=== PATIENT | female | born 1965 | race Caucasian/White ===

== ENCOUNTER 2018-12-24 20:22 | Emergency (ER) | payer SELFPAY ==
--- NOTE | 2018-12-24 21:01 | RAD ---
XR Chest Pa Lat STANDARD History: Fall. Left-sided pain. Comparison: None. Findings: Lungs are clear. No pneumothorax or effusion. Cardiac silhouette and mediastinal contours a re within normal limits. No acute osseous abnormality. Impression: No acute intrathoracic abnormality.
--- NOTE | 2018-12-24 21:04 | RAD ---
XR Pelvis AP STANDARD History: Fall. Injury. Comparison: None. Findings: Mild degenerative changes of the SI joints. No acute fracture or malalignment. Obturator ri ngs are intact. Enlarged bilateral L5 transverse processes have are fused with the sacrum. Impression: No acute osseous abnormality.
[2018-12-24] MEDS ORDERED: HYDROcodone/Acetaminophen 5/325 mg Tablet ONE (21:23)
[2018-12-24] MEDS ORDERED: Ketorolac Tromethamine 60 MG/2 ML VIAL ONE (21:23)
== END 2018-12-24 21:30 | disposition home or self-care (01) ==
LOC: MADERS 20:22
DX: S20.212A Contusion of left front wall of thorax, initial encounter (principal); S70.02XA Contusion of left hip, initial encounter; F17.210 Nicotine dependence, cigarettes, uncomplicated; V19.9XXA Pedal cyclist (driver) (passenger) injured in unspecified traffic accident, initial encounter
CPT/HCPCS: 71046; 72170; 96372; J1885

== ENCOUNTER 2019-06-23 19:38 | Emergency (ER) | payer SELFPAY ==
[2019-06-23] MEDS ORDERED: Sulfameth/Trimethoprim DS 800-160mg TAB ONE (20:31)
[2019-06-23] MEDS ORDERED: cefTRIAXone\\ROCEPHIN 1 GM VIAL ONE (20:31)
[2019-06-23] MEDS ORDERED: Adacel (T-DAP) 0.5 ML SYRINGE ONE (20:31)
[2019-06-23] MEDS ORDERED: Sterile Water 10 ML ONE (20:32)
== END 2019-06-23 21:10 | disposition home or self-care (01) ==
LOC: MADERS 19:38
DX: T63.301A Toxic effect of unspecified spider venom, accidental (unintentional), initial encounter (principal); F41.9 Anxiety disorder, unspecified; F31.9 Bipolar disorder, unspecified; F17.210 Nicotine dependence, cigarettes, uncomplicated; F43.10 Post-traumatic stress disorder, unspecified
CPT/HCPCS: 90471; 90715; 96372; J0696

== ENCOUNTER 2019-12-30 13:17 | Emergency (ER) | payer SELFPAY ==
[2019-12-30] MEDS ORDERED: Naproxen 500 MG TAB ONE (14:45)
== END 2019-12-30 14:55 | disposition home or self-care (01) ==
LOC: MADERS 13:17
DX: S83.242A Other tear of medial meniscus, current injury, left knee, initial encounter (principal); F41.9 Anxiety disorder, unspecified; F31.9 Bipolar disorder, unspecified; F43.10 Post-traumatic stress disorder, unspecified; Z87.891 Personal history of nicotine dependence; V18.2XXA Unspecified pedal cyclist injured in noncollision transport accident in nontraffic accident, initial encounter; Y92.89 Other specified places as the place of occurrence of the external cause
CPT/HCPCS: 99283

== ENCOUNTER 2020-09-11 17:11 | Emergency (ER) | payer SELFPAY | END 2020-09-11 19:08 | disposition home or self-care (01) | LOC: MADERS 17:11 | DX: S46.011A Strain of muscle(s) and tendon(s) of the rotator cuff of right shoulder, initial encounter (principal); R53.1 Weakness; F17.210 Nicotine dependence, cigarettes, uncomplicated; W10.9XXA Fall (on) (from) unspecified stairs and steps, initial encounter ==

== ENCOUNTER 2021-08-14 10:58 | Emergency (ER) | payer SELFPAY ==
[2021-08-14 11:36] LABS: Bilirubin Negative (Negative); Blood, Urine Large (Negative); Glucose, Urine (Dipstick) Negative (Negative); Ketone, Urine Negative (Negative); Leukocyte Small (Negative); Nitrite Negative (Negative); Protein, Urine (Dipstick) Negative (Neg-Trace); Urobilinogen 0.2 mg/dL (Less than 2)
[2021-08-14 11:37] LABS: Pregnancy Test - Urine (BHCG) Negative (Negative); Pregu Control Background? CLEAR/WHITE (CLR/WHITE); Pregu Control Bar Appear? YES (CONTROL BAR); Specific Gravity 1.005 (1.002-1.036)
[2021-08-14 11:41] LABS: Clarity Hazy (Clear); Specific Gravity, Urine 1.005 (1.002-1.036)
[2021-08-14 11:44] LABS: Bacteria/HPF Rare-Few HPF (None Seen); Squamous Epithelial 0-3 HPF (0-3)
== END 2021-08-14 12:30 ==
LOC: MADERS 10:58
DX: N39.0 Urinary tract infection, site not specified (principal); N81.10 Cystocele, unspecified; Z87.891 Personal history of nicotine dependence
CPT/HCPCS: 81003; 81015; 81025; 87086; 99283

== ENCOUNTER 2022-07-31 19:16 | Emergency (ER) | payer OTHER, SELFPAY | END 2022-07-31 19:41 | disposition home or self-care (01) | LOC: MADERS 19:16 | DX: H60.92 Unspecified otitis externa, left ear (principal); Z87.891 Personal history of nicotine dependence | CPT/HCPCS: 99282 ==

== ENCOUNTER 2022-09-23 14:16 | Emergency (ER) | payer OTHER ==
[~2022-09-23 14:16] MED LIST: Iopamidol 370 76% 100 ML VIAL ONE; Ondansetron PF 4 MG/2 ML Vial ONE; Sodium Chloride 0.9% 1,000 ML BAG ONE; Sodium Chloride 0.9% 100 ML BAG ONE
[2022-09-23 15:01] LABS: #Basophils 0.1 thou/uL (0.0-0.2); #Eosinphils 0.1 thou/uL (0.0-0.7); #Lymphocytes 1.7 thou/uL (1.20-3.40); #Monocytes 0.4 thou/uL (0.11-0.59); #Neutrophils 6.3 thou/uL (1.40-6.50); %Basophils 0.6 % (0.0-1.0); %Eosinophils 1.5 % (0.0-10.0); %Lymphocytes 19.5 % (21.0-51.0); %Neutrophils 73.4 % (42.0-75.0); Hemoglobin 14.5 g/dL (12.0-16.0); Mean Corpuscular HGB CONC 32.7 g/dL (32.0-36.0); Mean Corpuscular Hemoglobin 30.3 pg (27.0-31.0); Mean Corpuscular Volume 92.7 fl (78.0-98.0); Mean Platelet Volume 7.2 fL (7.4-10.4); Platelet Count 280 10x3/uL (130-400); RBC Distribution Width 11.9 % (11.5-14.5); Red Blood Cell (RBC) Count 4.78 mill/uL (4.20-5.40); White Blood Cell (WBC) Count 8.6 10x3/uL (4.8-10.8)
[2022-09-23 15:15] LABS: ALT (SGPT) 33 U/L (8-55); AST (SGOT) 33 U/L (5-34); Alkaline Phosphatase 99 U/L (40-110); Anion Gap 16 mmol/L (10-20); BUN (Urea Nitrogen) 6 mg/dL (9.8-20.1); Bilirubin, Total 1.4 mg/dL (0.2-1.2); Calc. Creatinine Clearance 0 mL/min (70-130); Calcium 9.2 mg/dL (7.8-10.44); Carbon Dioxide 20 mmol/L (22-29); Chloride 105 mmol/L (98-107); Estimated GFR 100; Globulin 3.6 g/dL (2.4-3.5); Glucose 100 mg/dL (70-105); Potassium 4.2 mmol/L (3.5-5.1); Protein, Total 7.6 g/dL (6.0-8.3); Sodium 137 mmol/L (136-145)
[2022-09-23 15:16] LABS: Acetaminophen Less than 10 mcg/mL (10.0-30.0); Alcohol Less than 10.0 mg/dL (Less than 10); Salicylate Less than 8.0 mg/dL (15.0-30.0)
[2022-09-23 15:32] LABS: CKMB 1.2 ng/mL (0-6.6)
[2022-09-23] MEDS ORDERED: Piperacillin/Tazobactam 4.5 GM VIAL ONE (16:15)
[2022-09-23] MEDS ORDERED: Ketorolac Tromethamine 30 MG/ML VIAL ONE (16:15)
[2022-09-23] MEDS ORDERED: Morphine 2 MG/ML VIAL ONE ×2 (16:59→17:00)
[2022-09-23 17:06] LABS: Amphetamine Not Detected (NotDetected); Benzodiazepine Screen Not Detected (NotDetected); Cocaine Metabolite Screen Not Detected (NotDetected); Methadone Not Detected (NotDetected); Methamphetamine Not Detected (NotDetected); Opiate Screen Not Detected (NotDetected); Phencyclidine (PCP) Not Detected (NotDetected); THC/Cannabinoid Screen Not Detected (NotDetected); Tricyclic Screen Not Detected (NotDetected)
[2022-09-23 17:07] LABS: Barbiturates Screen Not Detected (NotDetected); Oxycodone Screen Not Detected (NotDetected)
== END 2022-09-23 17:40 | disposition short-term general hospital (02) ==
LOC: MADERS 14:16
DX: K37 Unspecified appendicitis (principal); R77.8 Other specified abnormalities of plasma proteins; F15.10 Other stimulant abuse, uncomplicated; Z87.891 Personal history of nicotine dependence
CPT/HCPCS: 71045; 74177; 80053; 80306; 80307; 82553; 83735; 84484; 85025; 93005; 96361; 96365; 96375; J1885; J2272; J2405; J2543; J3490; J7050; Q9967

== ENCOUNTER 2022-11-30 11:23 | Emergency (ER) | payer OTHER ==
[~2022-11-30 11:23] MED LIST changes: -Iopamidol 370 76% 100 ML VIAL ONE; +Lactated Ringer's 1,000 ML BAG ONE; -Ondansetron PF 4 MG/2 ML Vial ONE; -Sodium Chloride 0.9% 1,000 ML BAG ONE; -Sodium Chloride 0.9% 100 ML BAG ONE
[2022-11-30 12:15] LABS: Hematocrit 41.9 % (36.0-47.0); Hemoglobin 13.8 g/dL (12.0-16.0); Mean Corpuscular Hemoglobin 29.6 pg (27.0-31.0); Mean Corpuscular Volume 89.6 fl (78.0-98.0); Mean Platelet Volume 6.9 fL (7.4-10.4); Platelet Count 233 10x3/uL (130-400); RBC Distribution Width 12.5 % (11.5-14.5); Red Blood Cell (RBC) Count 4.68 mill/uL (4.20-5.40); White Blood Cell (WBC) Count 3.6 10x3/uL (4.8-10.8)
[2022-11-30] MEDS ORDERED: Albuterol 200 PUFF (6.7GM INHALER) ONE (12:19)
[2022-11-30] MEDS ORDERED: diphenhydrAMINE 50 MG/ML VIAL ONE (12:19)
[2022-11-30] MEDS ORDERED: Nitroglycerin 0.4 MG TAB 1 EACH ONE (12:19)
[2022-11-30] MEDS ORDERED: Prochlorperazine 10 MG/2 ML VIAL ONE (12:19)
[2022-11-30 12:20] LABS: MDiff Complete? YES; Manual Diff?? YES
[2022-11-30 12:21] LABS: Band 2 % (5-11); Lymphocytes 25 % (21-51); Monocytes 7 % (0-10); Neutrophil 66 % (42-75); Platelet Adequacy Comment Appears Adequate
[2022-11-30 12:22] LABS: Anisocytosis SLIGHT = 6-15 cells (100X) (0-5/hpf)
[2022-11-30 12:29] LABS: Bilirubin Negative (Negative); Blood, Urine Negative (Negative); Clarity Clear (Clear); Glucose, Urine (Dipstick) Negative (Negative); Ketone, Urine Negative (Negative); Leukocyte Trace (Negative); Nitrite Negative (Negative); Protein, Urine (Dipstick) Negative (Neg-Trace); Specific Gravity, Urine 1.015 (1.005-1.030); Urobilinogen 0.2 mg/dL (Less than 2)
[2022-11-30 12:30] LABS: ALT (SGPT) 52 U/L (8-55); AST (SGOT) 98 U/L (5-34); Albumin 3.9 g/dL (3.5-5.0); Alkaline Phosphatase 107 U/L (40-110); Anion Gap 18 mmol/L (10-20); BUN (Urea Nitrogen) 6 mg/dL (9.8-20.1); Calc. Creatinine Clearance 0 mL/min (70-130); Calcium 8.8 mg/dL (7.8-10.44); Carbon Dioxide 19 mmol/L (22-29); Chloride 101 mmol/L (98-107); Estimated GFR 95; Globulin 3.8 g/dL (2.4-3.5); Glucose 109 mg/dL (70-105); Lipase 10 U/L (8-78); Potassium 3.7 mmol/L (3.5-5.1); Protein, Total 7.7 g/dL (6.0-8.3); Sodium 134 mmol/L (136-145)
[2022-11-30 12:36] LABS: Troponin I Less than 0.010 ng/mL (< 0.028)
[2022-11-30 12:37] LABS: CAUTI Indications for Culture Dysuria,urgency,freq; RBC/HPF 0-3 HPF (0-3); Squamous Epithelial 0-3 HPF (0-3); WBC/HPF 0-3 HPF (0-3)
[2022-11-30 12:38] LABS: Bacteria/HPF Rare-Few HPF (None Seen); Urine Culture Reflex No No
[2022-11-30 12:48] LABS: SARS-CoV-2 NAA Rapid Test DETECTED (NotDetected)
[2022-11-30] MEDS ORDERED: Benzonatate 100 MG CAP ONE (13:27)
[2022-11-30] MEDS ORDERED: Ketorolac Tromethamine 30 MG/ML VIAL ONE (13:27)
[2022-11-30 14:21] LABS: D-Dimer Test 0.37 *mcg/mL (0.27-0.43)
[2022-11-30 15:29] LABS: Troponin I Less than 0.010 ng/mL (< 0.028)
[2022-11-30 18:35] LABS: INR-International Normal Ratio 0.9; Prothrombin Time 12.7 sec (12.0-14.7)
== END 2022-11-30 16:50 | disposition home or self-care (01) ==
LOC: MADERS 11:23
DX: U07.1 COVID-19 (principal); R74.01 Elevation of levels of liver transaminase levels; Z87.891 Personal history of nicotine dependence
CPT/HCPCS: 71046; 80053; 81001; 83605; 83690; 83880; 84484; 85025; 85379; 85610; 85730; 87040; 87804; 93005; 94760; 96361; 96374; 96375; J0780; J1200; J1885; J7120; U0002

== ENCOUNTER 2023-10-01 20:35 | Emergency (ER) | payer SELFPAY ==
[2023-10-01 21:33] LABS: #Basophils 0.1 thou/uL (0.0-0.2); #Eosinphils 0.1 thou/uL (0.0-0.7); #Lymphocytes 1.6 thou/uL (1.20-3.40); #Monocytes 0.4 thou/uL (0.11-0.59); #Neutrophils 2.9 thou/uL (1.40-6.50); %Basophils 1.5 % (0.0-1.0); %Eosinophils 1.8 % (0.0-10.0); %Lymphocytes 31.3 % (21.0-51.0); %Monocytes 7.4 % (0.0-10.0); Hematocrit 37.3 % (36.0-47.0); Hemoglobin 12.4 g/dL (12.0-16.0); Mean Corpuscular HGB CONC 33.2 g/dL (32.0-36.0); Mean Corpuscular Hemoglobin 30.1 pg (27.0-31.0); Mean Corpuscular Volume 90.5 fl (78.0-98.0); Mean Platelet Volume 5.4 fL (7.4-10.4); Platelet Count 200 10x3/uL (130-400); RBC Distribution Width 11.8 % (11.5-14.5); Red Blood Cell (RBC) Count 4.13 mill/uL (4.20-5.40); White Blood Cell (WBC) Count 5.1 10x3/uL (4.8-10.8)
[2023-10-01 21:48] LABS: Troponin I Less than 0.010 ng/mL (< 0.028)
[2023-10-01 21:48] LABS: Influenza A by NAA Not Detected (NotDetected); Influenza B by NAA Not Detected (NotDetected); SARS-CoV-2 NAA Rapid Test DETECTED (NotDetected)
[2023-10-01 21:53] LABS: ALT (SGPT) 32 U/L (8-55); AST (SGOT) 30 U/L (5-34); Albumin 3.3 g/dL (3.5-5.0); Alkaline Phosphatase 89 U/L (40-110); Anion Gap 13 mmol/L (10-20); BUN (Urea Nitrogen) 9 mg/dL (9.8-20.1); Bilirubin, Total 1.1 mg/dL (0.2-1.2); CK (CPK) 39 U/L (29-168); Calc. Creatinine Clearance 0 mL/min (70-130); Calcium 8.6 mg/dL (7.8-10.44); Carbon Dioxide 21 mmol/L (22-29); Chloride 103 mmol/L (98-107); Estimated GFR 90; Globulin 3.3 g/dL (2.4-3.5); Glucose 105 mg/dL (70-105); Potassium 3.6 mmol/L (3.5-5.1); Protein, Total 6.6 g/dL (6.0-8.3); Sodium 133 mmol/L (136-145)
[2023-10-01] MEDS ORDERED: Sodium Chloride 0.9% 500 ML ONE (21:57)
[2023-10-01] MEDS ORDERED: Acetaminophen 325 MG TAB ONE (21:57)
== END 2023-10-01 23:33 | disposition home or self-care (01) ==
LOC: MADERS 20:35
DX: U07.1 COVID-19 (principal)
CPT/HCPCS: 36415; 71045; 80053; 82550; 83880; 84484; 85025; 87081; 87430; 93005; J7030

== ENCOUNTER 2023-11-10 10:20 | Emergency (ER) | payer OTHER, SELFPAY | END 2023-11-10 11:09 | disposition home or self-care (01) | LOC: MADERS 10:20 | DX: H92.01 Otalgia, right ear (principal); H92.02 Otalgia, left ear | CPT/HCPCS: 99282 ==